=== PATIENT | female | born 1995 | race Caucasian/White ===

== ENCOUNTER 2017-04-18 23:36 | Emergency (ER) | END 2017-04-19 05:52 | disposition home or self-care (01) ==

== ENCOUNTER 2018-06-21 14:49 | Emergency (ER) | payer OTHER ==
[~2018-06-21] VITALS: Ht 167.6 cm; Wt 106.0 kg
[~2018-06-21 14:49] MED LIST: ACET500C5 PO; AMOX1TAB10 PO; BENZ-6 PO; IBUP800T48 PO
[2018-06-21 14:54] VITALS: BP 150/74; PULSE 67; RESP 18; Ht 167.6 cm; Wt 106.0 kg
[2018-06-21] MEDS ORDERED: IBUP-1542 PO (15:05)
--- NOTE | 2018-06-21 15:08 | ERD ---
ER Documentation Chief Complaint Chief Complaint 4th right finger nail, ripped, falling off s/p hit hand HPI ED 3 patient. 23-year-old female sustained an injury to her right fourth finger nail after she excellently hit it on some of his hand. She does have quite long fingernails. She is a small amount of blood but no current bleeding. She denies any mechanism to suggest fracture, dislocation as that it was only her nail which was hyperextended. ROS All systems reviewed and are negative except as per history of present illness. Medications Home Meds Active Scripts Ibuprofen* (Motrin*) 600 Mg Tab, 600 MG PO Q6, #20 TAB Prov:NEREYDA ALANIZ MD 06/21/18 Acetaminophen* (Tylophen*) 500 Mg Capsule, 1 CAP PO Q6H PRN for PAIN AND OR ELEVATED TEMP, #20 CAP Prov:PASILABAN,CHIAR F 04/19/17 Benzonatate* (Tessalon Perle*) 100 Mg Capsule, 100 MG PO Q8H PRN for COUGH, #20 CAP Prov:PASILABAN,KLAR F 04/19/17 Ibuprofen* (Motrin*) 800 Mg Tab, 800 MG PO Q6H PRN for PAIN AND OR ELEVATED TEMP, #30 TAB Prov:PASILABAN,KLAR F 04/19/17 Amoxicillin/Potassium Clav (Amox-Clav 875-125 mg Tablet) 875-125 mg Tab, 1 TAB PO BID for 10 Days, #20 TAB Prov:PASILABAN,KLAR F 04/19/17 Allergies Allergies: Coded Allergies: No Known Drug Allergy (Verified Allergy, Mild, 07/26/10) PMhx/Soc History of Surgery: No Anesthesia Reaction: No Hx Neurological Disorder: No Hx Respiratory Disorders: No Hx Cardiac Disorders: No Hx Psychiatric Problems: No Hx Miscellaneous Medical Probl: No Hx Alcohol Use: No Hx Substance Use: No Hx Tobacco Use: No Smoking Status: Never smoker FmHx Family History: No diabetes, No coronary disease, No other Physical Exam Vitals Vital Signs Date Temp Pulse Resp B/P (MAP) Pulse Ox O2 O2 Flow FiO2 Time Delivery Rate 06/21/18 98.8 67 18 150/74 99 14:54 (99) Physical Exam Const: No acute distress Head: Atraumatic Eyes: Normal Conjunctiva ENT: Normal External Ears, Nose and Mouth. Neck: Full range of motion. No meningismus. Resp: Clear to auscultation bilaterally Cardio: Regular rate and rhythm, no murmurs Abd: Soft, non tender, non distended. Normal bowel sounds Skin: No petechiae or rashes Back: No midline or flank tenderness Ext: No cyanosis, or edema. Right ring finger with long acrylic nails. She has slight amount of serous dried discharge from underneath the nail but no active bleeding. She has no bony tenderness or deformities or restricted range of motion. Neur: Awake and alert Psych: Normal Mood and Affect Procedures/MDM Patient presents with a partial nail avulsion of the long finger nail on her right ring finger. Treatment options discussed with patient. Patient was offered to be splinted and allow nail to fall off naturally or the other options a digital block and iatrogenic avulsion. Patient elects for splint and allow nail to fall off naturally. There is no current signs of infection and mechanism does not suggest fracture, dislocation, doubtful significant injury. Doubt nailbed laceration. Patient was placed in a right middle finger metal splint extending to the nail and was neurovascular intact after splint. He will be discharged home with reassurance, recommendations for primary care follow-up and return precautions for redness, fevers, new worsening symptoms. Departure Diagnosis: Primary Impression: Nail problem Condition: Stable Patient Instructions: Nail Avulsion, Partial Referrals: NO PRIMARY,CARE PHYSICIAN (PCP) Additional Instructions: Now will slowly fall off and a new nail will grow out underneath.. Recheck for redness, fevers, new worsening symptoms. NEREYDA ALANIZ MD Jun 21, 2018 15:08
== END 2018-06-22 15:12 | disposition home or self-care (01) ==
LOC: E/R 14:49
DX: L60.9 Nail disorder, unspecified (principal)
CPT/HCPCS: 29130; Z7502